=== PATIENT | female | born 1970 | race Caucasian/White ===

== ENCOUNTER 2023-03-10 15:28 | Emergency (ER) | payer OTHER, SELFPAY ==
[2023-03-10 15:29] VITALS: BP 120/76; PULSE 90; RESP 19; TEMP 36.2; O2SAT 95; BMI 35.2
[2023-03-10] MEDS: Ipratropium/Albuterol Sulfate 3 ML AMPUL.NEB INHALATION (15:58)
[2023-03-10 16:00] VITALS: PULSE 94; RESP 16
[2023-03-10 16:17] LABS: Absolute Lymphocyte Count 0.94 X10^3/uL (0.83-4.51); Absolute Neutrophil Count 6.7 X10^3/uL (2.0-7.7); Basophil# 0.01 X10^3/uL; Basophil% 0.1 % (0-1); Hematocrit 43.2 % (37-47); Hemoglobin 14.2 g/dL (12.0-15.0); Lymphocyte # 0.94 X10^3/ul (0.83-4.51); Lymphocyte % 11.8 % (19-41); Mean Corp Hgb Conc 32.9 g/dL (32-36); Mean Corpuscular Hgb 29.6 pg (27.0-32.0); Mean Platelet Vol. 9.8 fl (6.2-12.0); Monocyte% 3.8 % (0-10); NRBC Flagged by Analyzer 0 % (0-5); Neutrophil # 6.69 X10^3/uL (2.7-7.7); Neutrophil % 83.8 % (47-70); Platelet Count 244 K/mm3 (150-450); RBC Distribution Width CV 14.3 % (11.6-14.6); RBC Distribution Width SD 47.8 fl (35.1-43.9)
[2023-03-10] MEDS: 0.9% Normal Saline 1,000 ML 1000 ML IV (16:19)
[2023-03-10 16:28] LABS: Anion Gap 3 (5-15); BUN 10 mg/dL (7-18); BUN/Creat Ratio 11.5 RATIO (10-20); Calcium,Total 9.3 mg/dL (8.5-10.1); Chloride 107 mmol/L (98-107); Creatinine, Serum 0.87 mg/dL (0.55-1.02); EST Glomerular Filtration Rate 73 mL/min (>60); Est Glom Filt Rate - Afr Amer 88 mL/min (>60); Estimated Creatinine Clearance 69.61 ml/min; Glucose 145 mg/dL (74-106); Potassium 3.8 mmol/L (3.5-5.1); Sodium Level 137 mmol/L (136-145)
--- NOTE | 2023-03-10 16:37 | RAD_ITS ---
INDICATION: Cough EXAMINATION/TECHNIQUE: X-RAY - XR Chest 2 Views COMPARISON: None. FINDINGS: The lungs are clear. Tortuous and calcified thoracic aorta. The heart is not enlarged. No pleural effusion or pneumothorax. Degenerative changes of the thoracic spine. RAD/Chest PA and Lateral IMPRESSION: No acute radiographic abnormalities. Electronically Signed: Hal Yan MD at 17:08 EDT ,
--- NOTE | 2023-03-10 17:48 | EX.ED.DYSGE1 ---
HPI History of Present Illness Chief Complaint: General Illness [facility] Medical History (Updated 03/10/23 @ 17:[address] Yamil Moore, DO) Hypothyroid Allergy/AdvReac Type Severity Reaction Status Date / Time No Known Allergies Allergy Verified 03/10/23 15:32 Social History Smoking Status: Never smoker EXAM Physical Exam Const Vital Signs: 03/10/23 15:29 03/10/23 16:00 03/10/23 16:23 Temperature 97.2 F L Temperature Source Temporal Pulse Rate 90 94 Respiratory Rate 19 H 16 Respiratory Effort Short of Breath Respiratory Pattern Normal Blood Pressure 120/76 Blood Pressure Mean 90 Pulse Ox 95 Oxygen Delivery Method Room Air MDM MDM MDM Narrative Medical decision making narrative: Differential diagnosis includes viral upper respiratory infection, influenza infection, COVID infection, strep pharyngitis, and pneumonia. Chest x-ray will be obtained to assess for pneumonia. CBC will be obtained to assess for leukocytosis and anemia. Basic metabolic profile will be obtained to assess for electrolyte abnormality and renal function. COVID-19 rapid antigen will be obtained to assess for COVID infection. Influenza A and influenza B antigens will be obtained to assess for influenza infection. Rapid strep will be obtained to assess for strep pharyngitis. Lab Data Attestation: I reviewed the patient's lab results. Lab results narrative: CBC was reviewed and was within normal limits. Basic metabolic profile was reviewed and was within normal limits. Rapid strep antigen was reviewed and was negative. Influenza A and influenza B antigens were reviewed and was positive for influenza B. COVID-19 rapid antigen was reviewed and was negative. Labs: Laboratory Results - last 24 hr 03/10/23 03/10/23 16:10 16:10 WBC 8.0 RBC 4.80 Hgb 14.2 Hct 43.2 MCV 90.0 MCH 29.6 MCHC 32.9 RDW Std Deviation 47.8 H RDW Coeff of Reyes 14.3 Plt Count 244 MPV 9.8 Immature Gran % (Auto) 0.500 Neut % (Auto) 83.8 H Lymph % (Auto) 11.8 L [place] % (Auto) 3.8 Eos % (Auto) 0.0 Baso % (Auto) 0.1 Absolute Neuts (auto) 6.7 Absolute Lymphs (auto) 0.94 Nucleated RBC % 0 Sodium 137 Potassium 3.8 Chloride 107 Carbon Dioxide 27.0 Anion Gap 3 L BUN 10 Creatinine 0.87 Estim Creat Clear Calc 69.61 Est GFR (MDRD) Af Amer 88 Est GFR (MDRD) Non-Af 73 BUN/Creatinine Ratio 11.5 Glucose 145 H Calcium 9.3 Radiography Diagnostic Testing: Clinical Impression(s) from Imaging Studies Chest X-Ray 03/10/23 16:37 IMPRESSION: No acute radiographic abnormalities. Electronically Signed: Hal Yan MD at 17:08 EDT , PA and lateral chest x-ray was obtained. There are 2 views. On my independent interpretation, lung huitron are clear. There is normal cardiac silhouette. Bony thorax is normal. There is no acute process noted. Radiologist also interpreted the x-ray and agrees. Treatment and Re-Evaluation :: Patient was given a DuoNeb aerosol here. Patient was advised of her findings. Patient symptoms started 5 days ago and therefore she is not a candidate for Tamiflu. Patient was advised of this. Patient was instructed to use Tylenol or ibuprofen as needed for any fevers or body aches. Patient was instructed to use Mucinex DM as needed for cough. Patient was instructed to follow-up with her primary care physician in 5 to 7 days. Patient understood and was agreeable with the plan. All questions were answered. Discharge Plan Triage Chief Complaint: General Illness ED Provider: Yamil Moore Dx/Rx/DC Orders Clinical Impression: Influenza B Instructions: ED Influenza (Adult) Stand Alone Forms: ED Work / School Excuse Primary Care Provider: Care Physician,No Primary Referrals: Care Physician,No Primary [Primary Care Provider] - Disposition Disposition: Home, Self Care
[2023-03-10 18:04] VITALS: BP 139/88; PULSE 67; RESP 15; O2SAT 97
== END 2023-03-10 18:05 | disposition home or self-care (01) ==
PROVIDERS: Emergency Provider Emergency Medicine; Visit Provider Emergency Medicine
DX: J10.1 Influenza due to other identified influenza virus with other respiratory manifestations (principal)
CPT/HCPCS: 71046; 80048; 85025; 87428; 87880; 94640; 96360; 99282; J7030